=== PATIENT | female | born 1935 | race Hispanic/Latino ===

== ENCOUNTER 2019-08-29 18:06 | Emergency (ER) | payer OTHER ==
--- OUTSIDE RECORDS SUMMARY | 2019-08-29 18:08 | XMS REPORT ---
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 Problem Blood tests for routine general Z00.00 Active physical examination Problem Seasonal allergic rhinitis, J30.2 Active unspecified trigger Problem Cough R05 Active Problem Hypertension I10 Active Problem Hyperlipidemia E78.5 Active Problem Tremors of nervous system R25.1 Active Problem Muscle cramps R25.2 Active Problem Screening for osteoporosis Z13.820 Active Problem Hypokalemia E87.6 Active Assessment Hypertension I10 Active Assessment Adult general medical exam Z00.00 Active Assessment Seasonal allergic rhinitis, J30.2 Active unspecified trigger Assessment Hyperlipidemia E78.5 Active Problem Urge incontinence of urine N39.41 Active Medications Medication Code Code Instructions Start End Status Dosage System Date Date Medrol [facility] 94699406041 4 MG Orally December Inactive as directed daily , with food 2017 Oxybutynin ND 42236308722 5 MG Orally October 23, Apr 21, Active 1 tablet Chloride Once a day 2017 2017 Flonase [facility] 59149105663 50 MCG/ACT Active 2 spray in Nasally Once a each day nostril Augmentin [facility] 83132828847 875-125 MG Active 1 tablet Orally every 12 hrs Crestor ND 77759676588 20 MG Orally Active 1 tablet Once a day Montelukast ND 42053543122 10 MG Orally Active 1 tablet in Sodium Once a day the evening Flonase [facility] 92320483021 50 MCG/ACT Active 2 spray in Nasally Once a each day nostril Cetirizine HCl ND 41678536734 10 MG Orally Active 1 tablet Once a day Potassium ND 20003219346 20 MEQ Orally November 23, Active ONE TAB BY Chloride ER 30 days 2018 MOUTH DAILY Losartan ND 66988309374 25 MG Orally Active 1 tablet Potassium Once a day Crestor [facility] 79914370846 20 MG Orally Active 1 tablet Once a day Primidone [facility] 88402154540 250 MG Orally Active 1 tablet Three times a day Results No Known Results Summary Purpose eClinicalWorks Submission
--- OUTSIDE RECORDS SUMMARY | 2019-08-29 18:08 | XMS REPORT ---
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 Active Problem Cough R05 Active Problem Hypertension I10 Active Problem Hyperlipidemia E78.5 Active Problem Tremors of nervous system R25.1 Active Problem Muscle cramps R25.2 Active Problem Screening for osteoporosis Z13.820 Active Problem Hypokalemia E87.6 Active Medications Medication Code Code Instructions Start End Status Dosage System Date Date Flonase [facility] 25763469036 50 MCG/ACT Active 2 spray in Nasally Once a each day nostril Cetirizine HCl ND 13021045939 10 MG Orally Active 1 tablet Once a day Crestor [facility] 57261248211 20 MG Orally Active 1 tablet Once a day Losartan ND 75689741160 25 MG Orally Active 1 tablet Potassium Once a day Primidone ND 58933169442 250 MG Orally Active 1 tablet Three times a day Potassium ND 13539196847 20 MEQ Orally November 23, Active ONE TAB BY Chloride ER 2017 MOUTH DAILY Oxybutynin ND 68686213729 5 MG Orally Once October 23, Apr 21, Active 1 tablet Chloride a day 2017 2017 Naprosyn ND 67023645302 500 MG Orally December 29December Active 1 tab BID 2017 Montelukast ND 56396903516 10 MG Orally Active 1 tablet Sodium Once a day in the evening Flonase ND 56218838954 50 MCG/ACT Active 2 spray in Nasally Once a each day nostril Crestor [facility] 49733303276 20 MG Orally Active 1 tablet Once a day Augmentin ND 37412865257 875-125 MG Active 1 tablet Orally every 12 hrs Results Name Result Date Reference Range Unit Abnormality Flag URINALYSIS AUTO W/O SCOPE (03958) ----ABIGAIL NEG 20171229 ----NIT NEG 20171229 ----PROTEIN NEG 20171229 ----pH 6.5 20171229 ----GLUCOSE NEG 20171229 ----KETONES TRACE 20171229 ----SPECIFIC GRAVITY 1.020 20171229 ----BLO TRACE INTACT 20171229 Summary Purpose eClinicalWorks Submission
--- OUTSIDE RECORDS SUMMARY | 2019-08-29 18:08 | XMS REPORT ---
:1935 Author Organization eClinicalWorks Care Team Providers Name Role Phone Dari Baeza Provider Role Unavailable Allergies No Known Allergies Problems Problem Type Condition Code Onset Dates [...] Problem Hypokalemia E87.6 Active Medications Medication Code System Code Instructions Start Date End Date Status Dosage Naprosyn [facility] 53043824632 500 MG Orally BID December 29, January 08, Active 1 tab 2018 2018 Results No Known Results Summary Purpose eClinicalChromoTek Submission
--- OUTSIDE RECORDS SUMMARY | 2019-08-29 18:09 | XMS REPORT ---
:1935 Author Organization eClinicalWorks Care Team Providers Name Role Phone [place], Na Provider Role Unavailable Allergies, Adverse Reactions, Alerts Substance Reaction Event Type penicillin rash Drug Allergy Sulfa rash Drug Allergy Problems Problem Type Condition Code Onset Dates Condition Status Problem Tremors of nervous system R25.1 Active Problem Screening for osteoporosis Z13.820 Active Problem Hypokalemia E87.6 Active Problem Constipation, unspecified K59.00 Active constipation type Assessment Seasonal allergic rhinitis, J30.2 Active unspecified trigger Problem Seasonal allergic rhinitis, J30.2 Active unspecified trigger Problem Glaucoma of right eye, 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 Problem Cough R05 Active Problem Hypertension I10 Active Problem Blood tests for routine general Z00.00 Active physical examination Problem Hyperlipidemia E78.5 Active Assessment Hyperlipidemia E78.5 Active Assessment Elevated blood pressure reading R03.0 Active Assessment Glaucoma of right eye, 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 Assessment Abdominal bloating R14.0 Active Problem 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 Assessment Pre-op exam Z01.818 Active Problem Urge incontinence of urine N39.41 Active Assessment Hypertension I10 Active Problem Muscle cramps R25.2 Active Medications Medication Code Code Instructions Start End Status Dosage System Date Date Potassium [facility] 23945360920 20 MEQ Orally November 23, Active ONE TAB BY Chloride ER 30 days 2018 MOUTH DAILY Primidone ND 72063987020 250 MG Orally Active 1 tablet Three times a day Augmentin [facility] 53485242801 875-125 MG Active 1 tablet Orally every 12 hrs Oxybutynin ND 71290578415 5 MG Orally Active 1 tablet Chloride Once a day Crestor [facility] 64943813780 20 MG Orally Active 1 tablet Once a day Flonase [facility] 31075255131 50 MCG/ACT Active 2 spray in Nasally Once a each day nostril Cetirizine HCl ND 09982186705 10 MG Orally Active 1 tablet Once a day Flonase [facility] 39329738322 50 MCG/ACT Active 2 spray in Nasally Once a each day nostril Montelukast [facility] 75737352220 10 MG Orally Active 1 tablet Sodium Once a day in the evening Losartan [facility] 01650995159 50-12.5 MG Active 1 tablet Potassium-HCTZ Orally Once a day Pantoprazole [facility] 77257062550 40 MG Orally Active 1 tablet Sodium Once a day Metoprolol [facility] 21023273375 50 MG Orally Active 1 capsule Succinate Once a day Crestor [facility] 14085343364 20 MG Orally Active 1 tablet Once a day Results No Known Results Summary Purpose eClinicalWorks Submission
--- OUTSIDE RECORDS SUMMARY | 2019-08-29 18:09 | XMS REPORT ---
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 Problem Blood tests for routine general Z00.00 Active physical examination Problem Seasonal allergic rhinitis, J30.2 Active unspecified trigger Assessment Hypertension I10 Active Problem Urge incontinence of urine N39.41 Active Problem Cough R05 Active Problem Hypertension I10 Active Problem Hyperlipidemia E78.5 Active Problem Tremors of nervous system R25.1 Active Problem Muscle cramps R25.2 Active Problem Screening for osteoporosis Z13.820 Active Problem Hypokalemia E87.6 Active Medications Medication Code Code Instructions Start End Date Status Dosage System Date Losartan [facility] 20837531684 25 MG Orally Active 1 tablet Potassium Once a day Results No Known Results Summary Purpose eClinicalWorks Submission
--- OUTSIDE RECORDS SUMMARY | 2019-08-29 18:09 | XMS REPORT ---
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 Assessment Elevated blood pressure reading R03.0 Active Problem Urge incontinence of urine N39.41 Active Medications Medication Code Code Instructions Start End Status Dosage System Date Date Myrbetriq [facility] 78418714747 25 MG Orally Aug 13, Active 1 tablet Once a day 2018 Losartan [facility] 92313698156 50-12.5 MG Aug 13, Active 1 tablet Potassium-HCTZ Orally Once a 2018 day Crestor [facility] 94840500352 20 MG Orally Active 1 tablet Once a day Potassium [facility] 87342993466 20 MEQ Orally November 23, Active ONE TAB BY Chloride ER 30 days 2017 MOUTH DAILY Cetirizine HCl ND 32627762315 10 MG Orally Active 1 tablet Once a day Augmentin ND 71181692240 875-125 MG Active 1 tablet Orally every 12 hrs Montelukast ND 06481601006 10 MG Orally Active 1 tablet Sodium Once a day in the evening Primidone ND 38235093676 250 MG Orally Active 1 tablet Three times a day Crestor [facility] 15497906971 20 MG Orally Active 1 tablet Once a day Losartan [facility] 24858833881 25 MG Orally Inactive 1 tablet Potassium Once a day Flonase [facility] 24824253370 50 MCG/ACT Active 2 spray in Nasally Once a each day nostril Flonase [facility] 80950224069 50 MCG/ACT Active 2 spray in Nasally Once a each day nostril Oxybutynin [facility] 86699008729 5 MG Orally Active 1 tablet Chloride Once a day Results No Known Results Summary Purpose eClinicalWorks Submission
--- OUTSIDE RECORDS SUMMARY | 2019-08-29 18:09 | XMS REPORT ---
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 39428536975 50 MG Orally Active 1 capsule Succinate Once a day Losartan [facility] 92578880385 50-12.5 MG Active 1 tablet Potassium-HCTZ Orally Once a day Losartan [facility] 57531616358 100-25 MG December 14, Active 1/2 tablet Potassium-HCTZ Orally Once a 2018 day Ranitidine HCl ND 92224197879 150 MG Orally December 14, Active 1 capsule Twice a day 2019 Potassium [facility] 43452728333 20 MEQ Orally November 23, Active ONE TAB BY Chloride ER 30 days 2018 MOUTH DAILY Primidone ND 13242769715 250 MG Orally Active 1 tablet one time a day Oxybutynin [facility] 81432610038 5 MG Orally Active 1 tablet Chloride Once a day Cetirizine HCl [facility] 62164653846 10 MG Orally Active 1 tablet Once a day Pantoprazole [facility] 30444746765 40 MG Orally Active 1 tablet Sodium Once a day Metoprolol [facility] 67356313136 100 MG Orally December 14, Active 1/2 Succinate Once a day 2018 capsule Montelukast [facility] 90977633184 10 MG Orally Active 1 tablet Sodium Once a day in the evening Flonase [facility] 18264732624 50 MCG/ACT Active 2 spray in Nasally Once a each day nostril Crestor [facility] 59731499547 40 MG Orally Active 1/2 tablet Once a day Results No Known Results Summary Purpose eClinicalWorks Submission
--- OUTSIDE RECORDS SUMMARY | 2019-08-29 18:09 | XMS REPORT ---
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 Problem Urge incontinence of urine N39.41 Active Problem Cough R05 Active Problem Hypertension I10 Active Problem Hyperlipidemia E78.5 Active Problem Tremors of nervous system R25.1 Active Problem Muscle cramps R25.2 Active Problem Screening for osteoporosis Z13.820 Active Problem Hypokalemia E87.6 Active Medications Medication Code Code Instructions Start End Status Dosage System Date Date Cetirizine HCl ND 01493642978 10 MG Orally Active 1 tablet Once a day Potassium ND 89340870277 20 MEQ Orally November 23, Active ONE TAB BY Chloride ER 2017 MOUTH DAILY Losartan ND 91444952650 25 MG Orally Active 1 tablet Potassium Once a day Crestor [facility] 02700931741 20 MG Orally Active 1 tablet Once a day Primidone ND 46588923254 250 MG Orally Active 1 tablet Three times a day Oxybutynin ND 76301580728 5 MG Orally Once Active 1 tablet Chloride a day Montelukast ND 75229686554 10 MG Orally Active 1 tablet Sodium Once a day in the evening Flonase ND 32516820578 50 MCG/ACT Active 2 spray in Nasally Once a each day nostril Augmentin ND 41210521229 875-125 MG Active 1 tablet Orally every 12 hrs Crestor [facility] 46364836857 20 MG Orally Active 1 tablet Once a day Flonase ND 03405628739 50 MCG/ACT Active 2 spray in Nasally Once a each day nostril Results Name Result Date Reference Range Unit Abnormality Flag URINALYSIS AUTO W/O SCOPE (59474) ----NIT neg 20180122 ----URO 0.2 20180122 ----PROTEIN neg 20180122 ----pH 5.5 20180122 ----BLO trace 20180122 ----GLUCOSE neg 20180122 ----ABIGAIL neg 20180122 ----BILIRUBIN neg 20180122 ----KETONES neg 20180122 ----SPECIFIC GRAVITY 1.025 20180122 PVR ----PVR 0 20180122 Summary Purpose eClinicalWorks Submission
--- OUTSIDE RECORDS SUMMARY | 2019-08-29 18:09 | XMS REPORT ---
:1935 Author Organization eClinicalWorks Care Team Providers Name Role Phone [place], Na Provider Role Unavailable Allergies, Adverse Reactions, Alerts Substance Reaction Event Type penicillin rash Drug Allergy Sulfa rash Drug Allergy Problems Problem Type Condition Code Onset Dates Condition Status Problem Muscle cramps R25.2 Active Problem Hypokalemia E87.6 Active Problem Tremors of nervous system R25.1 Active Problem Blood tests for routine general Z00.00 Active physical examination Assessment Seasonal allergic rhinitis, J30.2 Active unspecified trigger Problem Seasonal allergic rhinitis, J30.2 Active unspecified trigger Problem Constipation, unspecified K59.00 Active constipation type Problem Hypertension I10 Active Problem Screening for osteoporosis Z13.820 Active Problem Hyperlipidemia E78.5 Active Problem Cough R05 Active Assessment Generalized abdominal discomfort R10.84 Active Assessment Abdominal bloating R14.0 Active Assessment 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 Assessment Constipation, unspecified K59.00 Active constipation type Assessment Hypertension I10 Active Assessment Elevated blood pressure reading R03.0 Active Problem 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 Assessment Hyperlipidemia E78.5 Active Problem Urge incontinence of urine N39.41 Active Medications Medication Code Code Instructions Start End Date Status Dosage System Date Myrbetriq [facility] 45358310389 25 MG Orally August Inactive 1 tablet Once a day 2018 Flonase [facility] 36521727444 50 MCG/ACT Active 2 spray Nasally Once a in each day nostril Metoprolol [facility] 19693593392 50 MG Orally August Active 1 capsule Succinate Once a day 2018 Losartan ND 50196114319 25 MG Orally Inactive 1 tablet Potassium Once a day Cetirizine HCl ND 02805102010 10 MG Orally Active 1 tablet Once a day Primidone ND 69297910828 250 MG Orally Active 1 tablet Three times a day Flonase [facility] 77240392314 50 MCG/ACT Active 2 spray Nasally Once a in each day nostril Montelukast ND 85408255484 10 MG Orally Active 1 tablet Sodium Once a day in the evening Crestor [facility] 90057244376 20 MG Orally Active 1 tablet Once a day Losartan [facility] 53345332842 50-12.5 MG Active 1 tablet Potassium-HCTZ Orally Once a day Augmentin [facility] 65883422128 875-125 MG Active 1 tablet Orally every 12 hrs Crestor [facility] 14883970266 20 MG Orally Active 1 tablet Once a day Potassium [facility] 23111066300 20 MEQ Orally November 23, Active ONE TAB Chloride ER 30 days 2018 BY MOUTH DAILY Pantoprazole [facility] 27376706827 40 MG Orally August Active 1 tablet Sodium Once a day 2018 Oxybutynin [facility] 57994088007 5 MG Orally Active 1 tablet Chloride Once a day Results No Known Results Summary Purpose eClinicalWorks Submission
--- OUTSIDE RECORDS SUMMARY | 2019-08-29 18:09 | XMS REPORT ---
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 Problem Urge incontinence of urine N39.41 Active Problem Muscle cramps R25.2 Active Problem Tremors of nervous system R25.1 Active Problem Glaucoma of right eye, 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 Problem Constipation, unspecified K59.00 Active constipation type Problem Gastroesophageal reflux disease, K21.9 Active esophagitis presence not specified Problem Hyperlipidemia E78.5 Active Problem Cough R05 Active Problem Blood tests for routine general Z00.00 Active physical examination Problem Seasonal allergic rhinitis, J30.2 Active unspecified trigger Medications No Known Medications Results No Known Results Summary Purpose eClinical[employer]oucheres Submission
--- NOTE | 2019-08-29 18:30 | ER ---
Nurse's Notes [facility] Name: Luci Sheridan Age: 84 yrs Sex: Female : 1935 Arrival Date: 08/29/2019 Time: 18:08 Bed Waiting Private MD: Dory [place] Diagnosis: Presentation: 08/28 18:22 Chief complaint:. ss Assessment: 18:15 Reassessment: called patient to [facility] no answer. Unable to locate patient. ss 18:26 Reassessment: Pt seen leaving with steady gait out to parking lot and getting into vehicle by staff member and individuals in lobby. Registration staff stated that patient was instructed to come to ED to obtain masks as they were out and she was supposed to go on a trip soon. ED Course: 18:08 Patient arrived in ED. rg4 18:08 Dory [place] MD is Private Physician. rg4 18:26 No provider procedures requiring assistance completed. Patient did not have IV access ss during this emergency room visit. Administered Medications: No medications were administered Outcome: 18:26 Eloped from waiting room, before seeing physician ss 18:29 Patient left the ED. Signatures: María Bowman, RN RN Hazel Meeks rg4
== END 2019-08-29 18:29 | disposition left against medical advice (07) ==
LOC: ER 18:06
DX: Z53.21 Procedure and treatment not carried out due to patient leaving prior to being seen by health care provider (principal)
CPT/HCPCS: 99281